=== PATIENT | female | born 1995 | race Two or more races ===

== ENCOUNTER 2017-06-18 04:10 | Emergency (ER) | payer OTHER ==
[~2017-06-18] VITALS: Ht 175.3 cm; Wt 92.1 kg
[~2017-06-18 04:10] MED LIST: ATEN50TA PO
[2017-06-18 04:20] VITALS: BP 142/64
[2017-06-18 04:32] LABS: BILIRUBIN,URINE NEGATIVE (NEG); GLUCOSE,URINE NEGATIVE (NEG); NITRITE,URINE NEGATIVE (NEG); PH,URINE 6.5; PROTEIN,URINE NEGATIVE (NEG-TRACE); UROBILINOGEN,URINE 0.2 mg/dL (0.2 mg/dL)
[2017-06-18 04:41] LABS: BACTERIA,URINE 0 /HPF (0-FEW); RBC,URINE RARE /HPF (0-2); SQUAMOUS EPITHELIAL CELL,UR FEW /LPF
--- NOTE | 2017-06-18 05:02 | PHYS DOC ---
Past Medical History Past Medical History: No Pertinent History, Other Additional Past Medical Histor: MARFAN'S, SCOLIOSIS Past Surgical History: Other Additional Past Surgical Histo: LUMBAR PIPO IN PLACE Additional Information: non smoker Alcohol Use: None Drug Use: None Adult General Chief Complaint Chief Complaint: ABDOMINAL PAIN IN HPI HPI Patient is a 21 year old female who presents with lower abdominal pain. She is 18 weeks with EDC 11/13/16. She is a G2,P0,LC0,SAB1 with [facility] at [facility] with Dr Shepherd. She has had lower groin pain and cramping for 2 days. NO VAGINAL BLEEDING OR LEAK OF FLUID. She has no other complaints; no burning or blood in her urine. No fever chills cough or cold symptoms. She did get her flu vaccine. Review of Systems Review of Systems Constitutional: Denies fever or chills Eyes: Denies change in visual acuity, redness, or eye pain HENT: Denies nasal congestion or sore throat Respiratory: Denies cough or shortness of breath Cardiovascular: No chest pain GI: Denies abdominal pain, nausea, vomiting, bloody stools or diarrhea : Denies dysuria or hematuria; vaginal and groin cramping. NO LEAK OF FLUID OR VAGINAL BLEEDING Musculoskeletal: Denies back pain or joint pain Integument: Denies rash or skin lesions Neurologic: Denies headache, focal weakness or sensory changes All other systems were reviewed and found to be within normal limits, except as documented in this note. Allergies Allergies Allergies Coded Allergies Type Severity Reaction Last Updated Verified No Known Drug Allergies 06/07/14 No Physical Exam Physical Exam Constitutional: Well developed, well nourished, no acute distress, non-toxic appearance. HENT: Normocephalic, atraumatic, bilateral external ears normal, oropharynx moist, no oral exudates, nose normal. Eyes: PERRLA, EOMI, conjunctiva normal, no discharge. Neck: Normal range of motion, no tenderness, supple, no stridor. Cardiovascular:Heart rate regular rhythm, no murmur Lungs & Thorax: Bilateral breath sounds clear to auscultation Abdomen: Bowel sounds normal, soft, no tenderness, no masses, no pulsatile masses. Skin: Warm, dry, no erythema, no rash. Extremities: No tenderness, no cyanosis, no clubbing, ROM intact, no edema. Neurologic: Alert and oriented X 3, normal motor function, normal sensory function, no focal deficits noted. Current Patient Data Vital Signs Vital Signs Date Time Temp Pulse Resp B/P (MAP) Pulse Ox O2 Delivery O2 Flow Rate FiO2 06/18/17 04:20 98.2 98 22 142/64 (90) 98 Room Air 98.2 Lab Values Laboratory Tests Test 06/18/17 04:13 Urine Collection Type Unknown Urine Color Yellow Urine Clarity Clear Urine pH 6.5 Urine Specific [place] 1.010 Urine Protein Negative mg/dL (NEG-TRACE) Urine Glucose (UA) Negative mg/dL (NEG) Urine Ketones (Stick) Negative mg/dL (NEG) Urine Blood Negative (NEG) Urine Nitrite Negative (NEG) Urine Bilirubin Negative (NEG) Urine Urobilinogen Dipstick 0.2 mg/dL (0.2 mg/dL) Urine Leukocyte Esterase Trace (NEG) Urine RBC Rare /HPF (0-2) Urine WBC 1-4 /HPF (0-4) Urine Squamous Epithelial Cells Few /LPF Urine Bacteria 0 /HPF (0-FEW) Radiology/Procedures Radiology/Procedures [facility] [address] [place] [address] IMAGING REPORT Signed PATIENT: JOSE CARLOS GA ACCOUNT: [id number] : 1995 LOCATION: ER AGE: 21 SEX: F EXAM STATUS: DEP ER ORD. PHYSICIAN: BRENDON GONZALES MD REASON: 18 weeks w pain PROCEDURE: OB LIMITED Obstetric ultrasound limited: Reason for examination: Cramping pain for 2 days. Estimated date of confinement of 11/13/2017 from at 9 weeks somewhat the doctor's office. Single viable intrauterine gestation is present in cephalic presentation. Cervix length is normal at 3.4 cm. There is a anterior grade 2 placenta which appears somewhat heterogeneous and contains some placental lakes measuring up to 3 x 2 x 1.7 cm in size. No placenta previa or abruption is seen. Adequate amniotic fluid is present. There is a 4 chambered heart. Cardiac activity is seen with a cardiac rate of 153 bpm. No gross abnormality seen at the stomach, bladder, kidneys or spine. There appears be normal cord insertion. Biparietal diameter 4.41 cm corresponding to gestational age of 19 weeks 2 days. Head circumference is 16.41 cm corresponding to gestational age of 19 weeks 1 day. Abdominal circumference is 13.92 cm corresponding to gestational age of 19 weeks 2 days. Femur length is 3.04 cm corresponding to gestational age of 19 weeks 3 days. Cephalic index is 85.9. This does appear to be slightly elevated. Head circumference to some abdominal circumference ratio is 1.18 which is normal. Femur length to biparietal diameter ratio is 6 8.9. Femur length to head circumference ratio is 18.5 which is normal. Femur length to abdominal circumference ratio is 21.8. Estimated weight is 287 g. Estimated gestational age by ultrasound is 19 weeks 2 days with estimated date of confinement of 11/10/2017. IMPRESSION: Single viable intrauterine gestation with a mean gestational age estimated at 19 weeks 2 days with an estimated date of confinement of 11/10/2017. This corresponds with the clinical dates. No gross abnormalities of the fetus. Electronically signed by: Josephine Montejo MD (06/18/2017 5:34 AM) [facility] Course & Med Decision Making Course & Med Decision Making Evaluated patient. US performed and was unremarkable with good FHT at 153. She is to follow up with her OB today. UA with trace LE; will have it cultured. I have spoken with the patient and/or caregivers. I have explained the patient' s condition, diagnosis and treatment plan based on the information available to me at this time. I have answered the patient's and/or caregiver's questions and addressed any concerns. The patient and/or caregivers have as good an understanding of the patient's diagnosis, condition and treatment plan as can be expected at this point. The patient's condition is stable and appropriate for discharge from the emergency department. The patient will pursue further outpatient evaluation with the primary care physician or other designated or consulting physician as outlined in the discharge instructions. The patient and/or caregivers are agreeable to this plan of care and follow-up instructions have been explained in detail. The patient and/or caregivers have received these instructions in written format and have expressed an understanding of the discharge instructions. The patient and/or caregivers are aware that any significant change in condition or worsening of symptoms should prompt an immediate return to this or the closest emergency department or a call to 911. Josh Disclaimer Dragon Disclaimer This electronic medical record was generated, in whole or in part, using a voice recognition dictation system. Departure Departure Impression: Primary Impression: Abdominal pain in Additional Impression: 18 weeks gestation of Disposition: 01 HOME, SELF-CARE Condition: STABLE Referrals: NO PCP (PCP) Patient Instructions: Abdominal Pain During Additional Instructions: CALL YOUR OB TODAY AND LET THEM KNOW YOU HAD A URINE DONE (NO ANTIBIOTIC GIVEN) AND AN ULTRASOUND DONE. Problem Qualifiers Primary Impression: Abdominal pain in Trimester: second trimester Qualified Codes: O26.892 - Other specified related conditions, second trimester; R10.9 - Unspecified abdominal pain BRENDON GONZALES MD Jun 18, 2017 05:02
--- NOTE | 2017-06-18 05:37 | RAD ---
Obstetric ultrasound limited: Reason for examination: Cramping pain for 2 days. Estimated date of confinement of 11/13/2017 from at 9 weeks somewhat the doctor's office. Single viable intrauterine gestation is present in cephalic presentation. Cervix length is normal at 3.4 cm. There is a anterior grade 2 placenta which appears somewhat heterogeneous and contains some placental lakes measuring up to 3 x 2 x 1.7 cm in size. No placenta previa or abruption is seen. Adequate amniotic fluid is present. There is a 4 chambered heart. Cardiac activity is seen with a cardiac rate of 153 bpm. No gross abnormality seen at the stomach, bladder, kidneys or spine. There appears be normal cord insertion. Biparietal diameter 4.41 cm corresponding to gestational age of 19 weeks 2 days. Head circumference is 16.41 cm corresponding to gestational age of 19 weeks 1 day. Abdominal circumference is 13.92 cm corresponding to gestational age of 19 weeks 2 days. Femur length is 3.04 cm corresponding to gestational age of 19 weeks 3 days. Cephalic index is 85.9. This does appear to be slightly elevated. Head circumference to some abdominal circumference ratio is 1.18 which is normal. Femur length to biparietal diameter ratio is 6 8.9. Femur length to head circumference ratio is 18.5 which is normal. Femur length to abdominal circumference ratio is 21.8. Estimated weight is 287 g. Estimated gestational age by ultrasound is 19 weeks 2 days with estimated date of confinement of 11/10/2017. IMPRESSION: Single viable intrauterine gestation with a mean gestational age estimated at 19 weeks 2 days with an estimated date of confinement of 11/10/2017. This corresponds with the clinical dates. No gross abnormalities of the fetus. Electronically signed by: Josephine Montejo MD (06/18/2017 5:34 AM) [facility]
== END 2017-06-18 05:08 | disposition home or self-care (01) ==
LOC: ER 04:10
DX: O26.892 Other specified pregnancy related conditions, second trimester (principal); R10.30 Lower abdominal pain, unspecified; Z3A.19 19 weeks gestation of pregnancy
CPT/HCPCS: 76815; 81001; 87086; 99285-25